=== PATIENT | female | born 1995 | race Caucasian/White ===

== ENCOUNTER → 2020-02-23 15:00 | Outpatient (BNVA) | payer OTHER, SELFPAY | PROVIDERS: PCP Internal Medicine | DX: Z76.89 Persons encountering health services in other specified circumstances (principal) ==

== ENCOUNTER → 2020-02-23 15:08 | Outpatient (BNVA) | payer OTHER, SELFPAY | PROVIDERS: PCP Internal Medicine; Referring Provider Internal Medicine; Visit Provider Advanced Practice Midwife | DX: Z30.42 Encounter for surveillance of injectable contraceptive (principal) | CPT/HCPCS: 99211; J1050 ==

== ENCOUNTER → 2020-05-18 12:54 | Outpatient (BNVA) | payer OTHER, SELFPAY | PROVIDERS: PCP Internal Medicine; Visit Provider Advanced Practice Midwife | DX: Z30.42 Encounter for surveillance of injectable contraceptive (principal) | CPT/HCPCS: 96372; 99211 ==

== ENCOUNTER → 2020-08-10 09:58 | Outpatient (BNVA) | payer OTHER, SELFPAY | PROVIDERS: PCP Internal Medicine; Visit Provider Advanced Practice Midwife | DX: Z30.42 Encounter for surveillance of injectable contraceptive (principal) | CPT/HCPCS: 96372; 99211; J1050 ==

== ENCOUNTER → 2020-11-06 14:51 | Outpatient (BNVA) | payer OTHER, SELFPAY | PROVIDERS: PCP Internal Medicine; Visit Provider Advanced Practice Midwife | DX: Z30.42 Encounter for surveillance of injectable contraceptive (principal) | CPT/HCPCS: 96372; 99211 ==

== ENCOUNTER 2020-12-10 03:17 | Emergency (ER) | payer OTHER, SELFPAY ==
[2020-12-10 03:37] VITALS: BP 131/73; PULSE 95; RESP 18; TEMP 36.8; O2SAT 97; BMI 25.0
[2020-12-10 04:21] VITALS: BP 132/73; PULSE 88; RESP 20; O2SAT 98
[2020-12-10] MEDS: Acetaminophen 325 MG TABLET 650 MG PO (04:23)
[2020-12-10] MEDS: Acetaminophen 325 MG TABLET PO (04:23)
--- NOTE | 2020-12-10 05:43 | ED_ITS ---
HPI - Ear Problem General Chief complaint: Ear Problems Stated complaint: ear pain Time Seen by Provider: 12/10/20 05:43 Source: patient Mode of arrival: ambulatory History of Present Illness HPI Narrative: 25-year-old female presents with acute onset of right ear pain this started less than an hour prior to arrival and she denies any swimming or associated fever, chills or sore throat. Related Data Previous Rx's Medication Instructions Recorded medroxyprogesterone 150 mg/mL 150 mg IM Q12W #1 ml 08/10/20 intramuscular suspension ofloxacin 0.3 % ear drops 5 drp OTIC (EAR) RIGHT BID 7 Days 12/10/20 #5 ml Allergies Allergy/AdvReac Type Severity Reaction Status Date / Time Penicillins [PENICILLINS] Allergy Unknown ITCHINESS Verified 12/10/20 04:22 Penicillin Allergy Unknown rash Uncoded 12/10/20 04:22 Review of Systems Review of Systems: Pertinent positives and negatives as stated in HPI 10 point review of systems is otherwise negative. PMFSH Past Medical History Source: nursing notes reviewed Social History Social History Advance Directives: No Patient : No Physical Exam Vital Signs: Vital Signs: Last Vital Signs Temp 98.3 F 12/10/20 03:37 Pulse 88 12/10/20 04:21 Resp 20 12/10/20 04:21 BP 132/73 12/10/20 04:21 Pulse Ox 98 12/10/20 04:21 Body Mass Index 25.0 VITAL SIGNS: Reviewed. GENERAL: Well developed, well nourished, in no acute distress. HEAD: Normocephalic/atraumatic EYES: PERRLA, EOMI EARS: Right external canal with swelling and redness and unable to visualize TM, left side without acute abnormality NOSE: Nares patent bilateral OROPHARYNX: no oral lesions noted, posterior pharynx clear and non-erythematous without noted tonsillar enlargement/erythema/exudates NECK: Supple, no adenopathy LUNGS: Normal breath sounds. No adventitious sounds or accessory muscle use. SpO2<98> CARDIOVASCULAR: Regular rate and rhythm without noted murmur. ABDOMEN: Soft, non-tender, non-distended with bowel sounds SKIN: Inspection of the skin reveals no rashes NEUROLOGIC: Alert and oriented x 4. Course Course Course Narrative: 25-year-old female with history and clinical presentation consistent with otitis externa. Patient provided with a prescription and discharged home in stable condition. In addition, patient received combination analgesics and on re-evaluation endorses that she feels much better. Discharge Plan Discharge Clinical Impression: Otitis externa Patient Disposition: Home, Self-Care Instructions: Otitis Externa (ED) Additional Instructions: 1. Recommend [id number] Tylenol/ibuprofen as needed for pain control. 2. Complete the entire course of antibiotics as prescribed. 3. Follow-up with your primary care provider in the next 2-3 days for re-evaluat ion. Return to the ER for acute worsening of symptoms. Prescriptions: New ofloxacin 0.3 % drops 5 drp otic (ear) right BID 7 Days Qty: 5 RF: 0 No Action medroxyprogesterone [Depo-Provera] 150 mg/mL syringe 150 mg IM ONCE Qty: 1 RF: 0 medroxyprogesterone 150 mg/mL suspension 150 mg IM Q12W Qty: 1 RF: 1 Referrals: Physician,Unknown [Primary Care Provider] - 2 days
[2020-12-10 05:52] VITALS: BP 113/63; PULSE 77; RESP 16; O2SAT 99
[2020-12-10] MEDS: Ketorolac Tromethamine 15 MG/ML VIAL IM (05:54)
== END 2020-12-10 06:12 | disposition home or self-care (01) ==
PROVIDERS: Emergency Provider Student in an Organized Health Care Education/Training Program
DX: H60.93 Unspecified otitis externa, bilateral (principal); H92.03 Otalgia, bilateral; Z79.899 Other long term (current) drug therapy
CPT/HCPCS: 96372; 99283; 99284; J1885

== ENCOUNTER → 2021-01-31 08:52 | Outpatient (BNVA) | payer OTHER, SELFPAY | PROVIDERS: Visit Provider Advanced Practice Midwife | DX: Z30.42 Encounter for surveillance of injectable contraceptive (principal) | CPT/HCPCS: 96372; 99211 ==

== ENCOUNTER 2021-02-02 13:38 | Outpatient (REF) | payer OTHER, SELFPAY ==
[2021-02-02 16:11] LABS: HCG Quantitative < 2 mIU/mL
[2021-02-03 13:34] LABS: CT PCR NOT DETECTED (Not Detect.); NG PCR NOT DETECTED (Not Detect.)
[2021-02-04 10:51] LABS: BV Int Neg Control Negative (Negative); BV Int Pos Control Positive (Positive)
== END 2021-02-02 13:39 | disposition home or self-care (01) ==
LOC: HO.LAB 13:38
PROVIDERS: Visit Provider Advanced Practice Midwife
DX: R10.2 Pelvic and perineal pain (principal); Z79.3 Long term (current) use of hormonal contraceptives; Z12.4 Encounter for screening for malignant neoplasm of cervix
CPT/HCPCS: 36415; 84702; 87086; 87480; 87491; 87510; 87591; 87660; 88142; 99212

== ENCOUNTER 2021-04-05 11:51 | Outpatient (REF) | payer OTHER, SELFPAY ==
[2021-04-05 16:42] LABS: CT PCR NOT DETECTED (Not Detect.); NG PCR NOT DETECTED (Not Detect.)
[2021-04-06 08:51] LABS: BV Int Neg Control Negative (Negative); BV Int Pos Control Positive (Positive)
== END 2021-04-05 11:52 | disposition home or self-care (01) ==
LOC: HO.LAB 11:51
PROVIDERS: Visit Provider Advanced Practice Midwife
DX: N76.0 Acute vaginitis (principal); Z20.2 Contact with and (suspected) exposure to infections with a predominantly sexual mode of transmission
CPT/HCPCS: 87480; 87491; 87510; 87591; 87660; 99212

== ENCOUNTER → 2021-04-26 12:56 | Outpatient (BNVA) | payer OTHER, SELFPAY | PROVIDERS: Visit Provider Advanced Practice Midwife | DX: Z30.42 Encounter for surveillance of injectable contraceptive (principal) | CPT/HCPCS: 96372; 99211 ==

== ENCOUNTER 2021-05-02 08:21 | Outpatient (REF) | payer OTHER, SELFPAY ==
[2021-05-03 08:47] LABS: BV Int Neg Control Negative (Negative); BV Int Pos Control Positive (Positive)
== END 2021-05-02 08:22 | disposition home or self-care (01) ==
LOC: HO.LAB 08:21
PROVIDERS: Visit Provider Advanced Practice Midwife
DX: Z11.3 Encounter for screening for infections with a predominantly sexual mode of transmission (principal); N76.0 Acute vaginitis; R10.2 Pelvic and perineal pain
CPT/HCPCS: 87480; 87510; 87660; 99212

== ENCOUNTER → 2021-05-03 13:22 | Outpatient (BNVA) | payer OTHER, SELFPAY | PROVIDERS: Visit Provider Psychiatry & Neurology Neurology | DX: G43.109 Migraine with aura, not intractable, without status migrainosus (principal); G47.9 Sleep disorder, unspecified; M54.2 Cervicalgia | CPT/HCPCS: 99202 ==

== ENCOUNTER → 2021-06-01 14:52 | Outpatient (BNVA) | payer OTHER, SELFPAY | PROVIDERS: Visit Provider Psychiatry & Neurology Neurology ==

== ENCOUNTER 2021-06-05 13:27 | Outpatient (REF) | payer OTHER, SELFPAY ==
--- NOTE | ~2021-06-05 | US_ITS ---
EXAMINATION: US PELVIS CLINICAL INFORMATION: This is a 25-year-old female with pelvic pain. The patient has not had a recent menses because she is on medication. COMPARISON: Comparison is made to a previous study dated 08/31/2019. TECHNIQUE: Ultrasound of the pelvis is performed using both transabdominal and transvaginal transducers along with Doppler. Transvaginal imaging is performed due to inadequate visualization transabdominally. FINDINGS: Uterus: The uterus is anteverted and anteflexed and measures 7.4 x 3.5 x 4.5 cm. The double wall endometrial thickness is 0.5 mm. There is also fluid within the endometrial cavity. The uterus is smooth in contour and has normal myometrial echogenicity. No visible fibroid. Adnexa: Both ovaries are visualized. There is normal color flow to the adnexa. There is no ovarian torsion. There is no pelvic ascites or fluid collection. Right ovary measures 2.8 x 1.5 x 1.8 cm. The ovary volume is 4.1 mL. Previously, the right ovary measured 2.5 x 2.3 x 1.5 cm. No masses are seen. Left ovary measures 2.3 x 1.7 x 1.8 cm. The overall volume is 3.7 mL. Previously, the left ovary measured 2.6 x 2.1 x 1.7 cm. Follicular cysts are seen. US/US pelvic and transvaginal IMPRESSION: 1. Although the endometrial complex measures 0.5 cm there is fluid within the cavity. 2. Otherwise, normal study.
== END 2021-06-05 13:28 | disposition home or self-care (01) ==
LOC: HO.US 13:27
PROVIDERS: Visit Provider Advanced Practice Midwife
DX: R10.2 Pelvic and perineal pain (principal); Z79.3 Long term (current) use of hormonal contraceptives
CPT/HCPCS: 76830; 76856

== ENCOUNTER → 2021-06-12 14:41 | Outpatient (BNVA) | payer OTHER, SELFPAY | PROVIDERS: Visit Provider Advanced Practice Midwife | DX: Z13.89 Encounter for screening for other disorder (principal) ==

== ENCOUNTER 2021-06-13 09:00 | Outpatient (REF) | payer OTHER, SELFPAY ==
[2021-06-13 10:14] LABS: HCG Quantitative < 2 mIU/mL
[2021-06-14 05:27] LABS: Prolactin 7.2 ng/mL
== END 2021-06-13 09:01 | disposition home or self-care (01) ==
LOC: HO.LAB 09:00
PROVIDERS: PCP Internal Medicine; Visit Provider Advanced Practice Midwife
DX: N64.52 Nipple discharge (principal)
CPT/HCPCS: 36415; 84146; 84702

== ENCOUNTER → 2021-06-14 10:47 | Outpatient (REF) | payer OTHER, SELFPAY | LOC: HO.SL 10:47 | PROVIDERS: PCP Internal Medicine; Visit Provider Psychiatry & Neurology Neurology | DX: G47.9 Sleep disorder, unspecified (principal); G43.109 Migraine with aura, not intractable, without status migrainosus | CPT/HCPCS: 95806 ==

== ENCOUNTER 2021-07-09 13:08 | Outpatient (REF) | payer OTHER, SELFPAY ==
[2021-07-10 05:55] LABS: CT PCR NOT DETECTED (Not Detect.); NG PCR NOT DETECTED (Not Detect.)
[2021-07-10 15:41] LABS: BV Int Neg Control Negative (Negative); BV Int Pos Control Positive (Positive)
== END 2021-07-09 13:09 | disposition home or self-care (01) ==
LOC: HO.LAB 13:08
PROVIDERS: PCP Internal Medicine; Visit Provider Advanced Practice Midwife
DX: R10.2 Pelvic and perineal pain (principal); N64.52 Nipple discharge; Z30.42 Encounter for surveillance of injectable contraceptive; Z71.2 Person consulting for explanation of examination or test findings; Z20.2 Contact with and (suspected) exposure to infections with a predominantly sexual mode of transmission
CPT/HCPCS: 87480; 87491; 87510; 87591; 87660; 99212

== ENCOUNTER → 2021-07-23 13:06 | Outpatient (BNVA) | payer OTHER, SELFPAY | PROVIDERS: PCP Internal Medicine; Visit Provider Advanced Practice Midwife | DX: Z30.42 Encounter for surveillance of injectable contraceptive (principal) | CPT/HCPCS: 96372; 99211 ==

== ENCOUNTER 2021-09-25 12:12 | Emergency (ER) | payer OTHER, SELFPAY ==
--- NOTE | 2021-09-25 | ECG_ITS ---
Test Reason : cp Blood Pressure : / mmHG Vent. Rate : 092 BPM Atrial Rate : 092 BPM P-R Int : 192 ms QRS Dur : 092 ms QT Int : 350 ms P-R-T Axes : 082 084 032 degrees QTc Int : 432 ms Normal sinus rhythm Nonspecific T wave abnormality Abnormal ECG When compared with ECG of 13-MAY-2016 17:49, Inverted T waves have replaced nonspecific T wave abnormality in Inferior leads Nonspecific T wave abnormality now evident in Lateral leads Referred By: Generic ED Physician Electronically Signed By:ANGELES LOBATO
--- NOTE | ~2021-09-25 | XR_ITS ---
EXAMINATION: XR CHEST CLINICAL INFORMATION: Chest pain COMPARISON: Chest x-ray 11/07/2015 TECHNIQUE: 2 views of the chest were obtained. FINDINGS: No significant abnormality is noted involving the heart, lungs, mediastinum, bony thorax or soft tissues. XR/XR chest 2V IMPRESSION: Unremarkable examination.
[2021-09-25 13:13] VITALS: BP 107/64; PULSE 84; RESP 18; TEMP 36.6; O2SAT 99; BMI 27.4
[2021-09-25 13:35] LABS: UPreg QC Valid YES; Urine Pregnancy NEGATIVE (NEGATIVE)
[2021-09-25 13:46] LABS: Anion Gap 11 (12-20); Blood Urea Nitrogen 12 mg/dL (9-16); Calcium 9.1 mg/dL (8.4-10.2); Carbon Dioxide 26 mmol/L (22-29); Chloride 105 mmol/L (96-108); Creatinine Clr Calc Pharmacy 108.3; Estimated Glomerular Filt Rate > 60; Glucose Random 87 mg/dL (60-115); Potassium 3.8 mmol/L (3.3-5.1); Sodium 138 mmol/L (135-145)
[2021-09-25 13:49] LABS: Basophils Percent Auto 0.4 % (0-2); Eosinophils Absolute Auto 0.1 X10*3/uL (0.0-0.4); Eosinophils Percent Auto 0.7 % (0-4); Hematocrit 43.3 % (37.0-47.0); Hemoglobin 14.7 g/dl (12.0-16.0); Imm Gran Abs Auto 0.06 X10*3/uL (0.00-0.03); Imm Gran Pct Auto 0.7 % (0.0-0.4); Lymphocytes Absolute Auto 2.8 X10*3/uL (1.2-4.9); Lymphocytes Percent Auto 32.3 % (20-40); MANUAL DIFF FLAG SCAN; Mean Corpuscular HGB Conc 33.9 g/dl (31.0-35.0); Mean Corpuscular Hemoglobin 31.4 pg (27.0-33.0); Mean Corpuscular Volume 92.5 fL (80.0-98.0); Monocytes Absolute Auto 0.6 X10*3/uL (0.1-1.2); Neutrophils Percent Auto 58.9 % (45-73); PLT CLUMP 1; Red Blood Count 4.68 X10*6/uL (4.20-5.50); Red Cell Distribution Width 12.3 % (11.0-16.0); SCAN SMEAR FLAG 1
[2021-09-25 13:51] LABS: COVID-19 Test Negative (Negative); IDNOW Serial# 16C4AD1C; Influenza A Negative (Negative); Influenza B2 Positive (Negative)
[2021-09-25 13:53] LABS: Troponin-I High Sensitivity < 3.5 ng/L (<3.5-17.0)
[2021-09-25 14:15] LABS: Mean Platelet Volume 12.3 fL (9.4-12.3); Platelet Count 171 X10*3/uL (160-400); White Blood Count 8.5 X10*3/uL (4.8-10.8)
[2021-09-25 14:16] LABS: SLIDE REVIEW VERIFIED
--- NOTE | 2021-09-25 14:35 | ED.CHESTPAIN ---
HPI - Chest Pain General Chief Complaint: Chest Pain Stated Complaint: Chest pain radiating down L arm/SOB Time Seen by Provider: 09/25/21 14:23 Source: patient Mode of arrival: ambulatory Limitations: no limitations History of Present Illness HPI narrative: Patient comes to emergency room complaining of 3 days of nausea, chest discomfort, not feeling well. Patient recently returned from [place]. Patient denies vomiting diarrhea, no coughing Related Data Home Medications Medication Instructions Recorded Confirmed albuterol sulfate 90 mcg/actuation 2 puff PO Q6H PRN wheezing 05/02/21 06/01/21 aerosol inhaler (ProAir HFA) ibuprofen 800 mg tablet 800 mg PO Q8H PRN pain 05/02/21 06/01/21 Previous Rx's Medication Instructions Recorded magnesium oxide 250 mg PO DAILY #30 tabs 05/10/21 amitriptyline 25 mg tablet 50 mg PO BEDTIME #60 tabs 06/01/21 riboflavin (vitamin B2) 400 mg 400 mg PO DAILY #30 tabs 06/01/21 tablet medroxyprogesterone 150 mg/mL 150 mg IM [id number] 12 weeks #1 mL 07/09/21 intramuscular suspension Allergies Allergy/AdvReac Type Severity Reaction Status Date / Time Penicillins [PENICILLINS] Allergy Unknown ITCHINESS Verified 07/09/21 13:32 Penicillin Allergy Unknown rash Uncoded 06/01/21 14:52 Review of Systems Review of Systems: Constitutional : No Weight loss, No Fever, No Chills, No Night Sweats, complaining of fatigue and generalized malaise ENT/Mouth : No Hearing loss, No Ear Pain, No Nasal Congestion, No Sinus Pain, No Hoarseness, No sore throat, No Rhinorrhea, No Swallowing Difficulty Eyes: No Eye Pain, No Swelling, No Redness, No Foreign Body, No Discharge, No Vision Changes Cardiovascular : No Chest Pain, complaining of chest discomfort with breathing, No SOB, No Dyspnea on Exertion, No Orthopnea, No Edema, No Palpitations Respiratory : No Cough, No Sputum, No Wheezing, No Smoke Exposure, No Dyspnea Gastrointestinal : No Nausea, No Vomiting, No Diarrhea, No Constipation, No abdominal Pain, No Hematochezia, No Melena Genitourinary : no irregular bleeding, No Dysuria, No Urinary Frequency, No Hematuria, No Urinary Incontinence, No Urgency, No Flank Pain, No Urinary Flow Changes, No Hesitancy Musculoskeletal : No joint pain, No Myalgias, No Joint Swelling Skin : No Skin Lesions, No rash Neuro : No Weakness, No Numbness, No Paresthesias, No Loss of Consciousness, No Dizziness, No Headache Psych : No Anxiety/Panic, No Depression, No SI/HI/AH/VH, No Social Issues, Heme/Lymph: No Bruising, No Bleeding,No Lymphadenopathy Endocrine : No Polyuria, No Polydipsia, No Temperature Intolerance [facility] Past Medical History Medical History Heartburn Surgical History [place] teeth extracted Family History Family History Mother HTN (hypertension) Father Testicular cancer Paternal Grandmother Diabetes Maternal Grandmother Thyroid disorder Paternal Grandfather Colon cancer Social History Social History Alcohol intake: current Alcohol intake frequency: holidays/special occasions only Patient Tobacco Use Status: Never used Tobacco Advance Directives: No Advance Directives Information Provided: Yes Gender identity: Female Physical Exam Vital Signs: Vital Signs: Last Vital Signs Temp 98 F 09/25/21 13:13 Pulse 84 09/25/21 13:13 Resp 18 09/25/21 13:13 BP 107/64 09/25/21 13:13 Pulse Ox 99 09/25/21 13:13 O2 Del Method 09/25/21 13:13 BMI result Body Mass Index 27.4 Const: Other: Appearance: Alert. Oriented X3. No acute distress. Well appearing Eyes: Pupils equal, round and reactive to light. ENT: Pharynx normal. Neck: Normal inspection. Neck supple. No lymph nodes noted. No crepitus CVS: Normal heart rate and rhythm. Pulses normal. Normal S1 and S2 Respiratory: No respiratory distress. Breath sounds normal. No Wheezing. No rales Abdomen: Soft and nontender. No rigidity. No distention. Skin: Skin warm and dry. Normal skin color. Normal skin turgor. Extremities: No lower extremity edema. No Lacerations. No Rash Neuro: Oriented X 3. No motor deficit. No sensory deficit. Moving all extremities. No slurred speech. CN 2 through 12 grossly intact Psych: calm, cooperative, normal affect Course Course Course Narrative: I discussed the labs and imaging with the patient, patient tested positive for influenza A. Patient is already 3-4 days since she is symptomatic. Discussed with the patient that Tamiflu may not be effective. Patient decided that she will not take the treatment. Patient states she has enough Tylenol and ibuprofen at home. MDM - Chest Pain Lab Data Result diagrams: 09/25/21 13:23 09/25/21 13:23 Labs: Lab Results 09/25/21 09/25/21 09/25/21 Range/Units 13:23 13:23 13:23 WBC 8.5 (4.8-10.8) X10*3/uL RBC 4.68 (4.20-5.50) X10*6/uL Hgb 14.7 (12.0-16.0) g/dl Hct 43.3 (37.0-47.0) % MCV 92.5 (80.0-98.0) fL MCH 31.4 (27.0-33.0) pg MCHC 33.9 (31.0-35.0) g/dl RDW 12.3 (11.0-16.0) % Plt Count 171 (160-400) X10*3/uL MPV 12.3 (9.4-12.3) fL Immature Gran % (Auto) 0.7 H (0.0-0.4) % Neut % (Auto) 58.9 (45-73) % Lymph % (Auto) 32.3 (20-40) % [place] % (Auto) 7.0 (2-11) % Eos % (Auto) 0.7 (0-4) % Baso % (Auto) 0.4 (0-2) % Lymph # (Auto) 2.8 (1.2-4.9) X10*3/uL [place] # (Auto) 0.6 (0.1-1.2) X10*3/uL Eos # (Auto) 0.1 (0.0-0.4) X10*3/uL Baso # (Auto) 0.0 (0.0-0.2) X10*3/uL Abs Immat Gran (auto) 0.06 H (0.00-0.03) X10*3/uL Absolute Neuts (auto) 5.0 (2.0-8.3) x10*3/uL Absolute Nucleated RBC 0.000 (0.0-0.012) X10*3/uL Nucleated RBC % (auto) 0.0 (0.0-0.2) /100WBC Smear Tech's Comments VERIFIED Sodium 138 (135-145) mmol/L Potassium 3.8 (3.3-5.1) mmol/L Chloride 105 (96-108) mmol/L Carbon Dioxide 26 (22-29) mmol/L Anion Gap 11 L (12-20) BUN 12 (9-16) mg/dL Creatinine 0.79 (0.5-1.4) mg/dL Estim Creat Clear Calc 108.3 Estimated GFR > 60 Random Glucose 87 (60-115) mg/dL Calcium 9.1 (8.4-10.2) mg/dL Troponin I High Sens (<3.5-17.0) ng/L Urine Test (NEGATIVE) COVID-19 (FABIAN) (Negative) COVID-19 Clin Com Influenza Type A (CASSIDY) Negative (Negative) Influenza Type B (CASSIDY) Positive A (Negative) Influenza A & B Note See Note 09/25/21 09/25/21 09/25/21 Range/Units 13:23 13:23 13:23 WBC (4.8-10.8) X10*3/uL RBC (4.20-5.50) X10*6/uL Hgb (12.0-16.0) g/dl Hct (37.0-47.0) % MCV (80.0-98.0) fL MCH (27.0-33.0) pg MCHC (31.0-35.0) g/dl RDW (11.0-16.0) % Plt Count (160-400) X10*3/uL MPV (9.4-12.3) fL Immature Gran % (Auto) (0.0-0.4) % Neut % (Auto) (45-73) % Lymph % (Auto) (20-40) % [place] % (Auto) (2-11) % Eos % (Auto) (0-4) % Baso % (Auto) (0-2) % Lymph # (Auto) (1.2-4.9) X10*3/uL [place] # (Auto) (0.1-1.2) X10*3/uL Eos # (Auto) (0.0-0.4) X10*3/uL Baso # (Auto) (0.0-0.2) X10*3/uL Abs Immat Gran (auto) (0.00-0.03) X10*3/uL Absolute Neuts (auto) (2.0-8.3) x10*3/uL Absolute Nucleated RBC (0.0-0.012) X10*3/uL Nucleated RBC % (auto) (0.0-0.2) /100WBC Smear Tech's Comments Sodium (135-145) mmol/L Potassium (3.3-5.1) mmol/L Chloride (96-108) mmol/L Carbon Dioxide (22-29) mmol/L Anion Gap (12-20) BUN (9-16) mg/dL Creatinine (0.5-1.4) mg/dL Estim Creat Clear Calc Estimated GFR Random Glucose (60-115) mg/dL Calcium (8.4-10.2) mg/dL Troponin I High Sens < 3.5 (<3.5-17.0) ng/L Urine Test NEGATIVE (NEGATIVE) COVID-19 (FABIAN) Negative (Negative) COVID-19 Clin Com See Note Influenza Type A (CASSIDY) (Negative) Influenza Type B (CASSIDY) (Negative) Influenza A & B Note Imaging Data Chest x-ray: My impression: No acute findings, no consolidations Discharge Plan Discharge Clinical Impression: Influenza A Patient Disposition: Home, Self-Care Instructions: Influenza (ED) Additional Instructions: Please follow-up with your primary care physician tomorrow. If you have any worsening or new symptoms, please return to the emergency room or call 911 Prescriptions: No Action magnesium oxide 250 mg magnesium tablet 250 mg PO DAILY Qty: 30 6RF albuterol sulfate [ProAir HFA] 90 mcg/actuation HFA aerosol inhaler 2 puff PO Q6H PRN (Reason: wheezing) ibuprofen 800 mg tablet 800 mg PO Q8H PRN (Reason: pain) amitriptyline 25 mg tablet 50 mg PO BEDTIME Qty: 60 3RF riboflavin (vitamin B2) 400 mg tablet 400 mg PO DAILY Qty: 30 3RF medroxyprogesterone 150 mg/mL suspension 150 mg IM [id number] Days Qty: 1 3RF Stand Alone Forms: Work/School Release
== END 2021-09-25 15:10 | disposition home or self-care (01) ==
PROVIDERS: Emergency Provider Emergency Medicine; PCP Internal Medicine
DX: J10.1 Influenza due to other identified influenza virus with other respiratory manifestations (principal); Z20.822 Contact with and (suspected) exposure to COVID-19
CPT/HCPCS: 71046; 80048; 81025; 84484; 85025; 87502; 87635; 93005; 99283

== ENCOUNTER → 2021-10-22 11:08 | Outpatient (BNVA) | payer OTHER, SELFPAY | PROVIDERS: PCP Internal Medicine; Visit Provider Advanced Practice Midwife | DX: Z30.42 Encounter for surveillance of injectable contraceptive (principal) | CPT/HCPCS: 96372; 99211 ==

== ENCOUNTER → 2022-01-09 15:14 | Outpatient (BNVA) | payer OTHER, SELFPAY | PROVIDERS: PCP Internal Medicine; Visit Provider Advanced Practice Midwife | DX: Z30.42 Encounter for surveillance of injectable contraceptive (principal) | CPT/HCPCS: 96372; 99211 ==

== ENCOUNTER 2022-03-15 13:37 | Outpatient (REF) | payer OTHER, SELFPAY ==
[2022-03-15 18:11] LABS: CT PCR NOT DETECTED (Not Detect.); NG PCR NOT DETECTED (Not Detect.)
[2022-03-17 14:21] LABS: BV Int Neg Control Negative (Negative); BV Int Pos Control Positive (Positive)
== END 2022-03-15 13:38 | disposition home or self-care (01) ==
LOC: HO.LNP 13:37
PROVIDERS: Visit Provider Advanced Practice Midwife
DX: Z11.3 Encounter for screening for infections with a predominantly sexual mode of transmission (principal); R10.2 Pelvic and perineal pain; Z20.2 Contact with and (suspected) exposure to infections with a predominantly sexual mode of transmission
CPT/HCPCS: 81003; 87086; 87088; 87186; 87480; 87491; 87510; 87591; 87660

== ENCOUNTER → 2022-04-04 15:00 | Outpatient (BNVA) | payer OTHER, SELFPAY | PROVIDERS: PCP Internal Medicine; Visit Provider Advanced Practice Midwife | DX: Z30.42 Encounter for surveillance of injectable contraceptive (principal) | CPT/HCPCS: 96372; 99211 ==

== ENCOUNTER 2022-05-22 15:46 | Emergency (ER) | payer OTHER, SELFPAY ==
--- NOTE | ~2022-05-22 | US_ITS ---
EXAMINATION: US PELVIS CLINICAL INFORMATION: Pelvic pain for 5 days COMPARISON: Pelvic ultrasound 06/05/2021 TECHNIQUE: Ultrasound of the pelvis is performed using both transabdominal and transvaginal transducers along with Doppler. Transvaginal imaging is performed due to inadequate visualization transabdominally. FINDINGS: Uterus: The uterus is anteverted and measures 7.7 x 2.6 x 5.4 cm in sagittal, AP, transverse dimensions. The double wall endometrial thickness is 2 mm. Small amount of avascular complex hypoechoic fluid and/or debris in the endometrial cavity. The uterus is smooth in contour and has normal myometrial echogenicity. No visible fibroid. Adnexa: Both ovaries are visualized. There is normal color flow to the adnexa. There is no ovarian torsion. There is no pelvic ascites or fluid collection. Right ovary measures 2.1 x 2.7 x 1.6 cm, volume 14.8 mL, previously 2.8 x 1.5 x 1.8 a.m., line 4.1 mL. Left ovary measures 2.7 x 1.9 x 2 cm, volume 5.4 mL. Previously 2.3 x 1.7 x 1.8 cm, volume 3.7 mL. US/US pelvic ovarian doppler IMPRESSION: 1. No evidence of ovarian torsion. 2. Small amount of avascular complex fluid in the endometrial cavity, nonspecific. 3. Normal uterus and ovaries. No adnexal mass/cyst.
--- NOTE | ~2022-05-22 | US_ITS ---
EXAMINATION: US PELVIS CLINICAL INFORMATION: Pelvic pain for 5 days COMPARISON: Pelvic ultrasound 06/05/2021 TECHNIQUE: Ultrasound of the pelvis is performed using both transabdominal and transvaginal transducers along with Doppler. Transvaginal imaging is performed due to inadequate visualization transabdominally. FINDINGS: Uterus: The uterus is anteverted and measures 7.7 x 2.6 x 5.4 cm in sagittal, AP, transverse dimensions. The double wall endometrial thickness is 2 mm. Small amount of avascular complex hypoechoic fluid and/or debris in the endometrial cavity. The uterus is smooth in contour and has normal myometrial echogenicity. No visible fibroid. Adnexa: Both ovaries are visualized. There is normal color flow to the adnexa. There is no ovarian torsion. There is no pelvic ascites or fluid collection. Right ovary measures 2.1 x 2.7 x 1.6 cm, volume 14.8 mL, previously 2.8 x 1.5 x 1.8 a.m., line 4.1 mL. Left ovary measures 2.7 x 1.9 x 2 cm, volume 5.4 mL. Previously 2.3 x 1.7 x 1.8 cm, volume 3.7 mL. US/US pelvic and transvaginal IMPRESSION: 1. No evidence of ovarian torsion. 2. Small amount of avascular complex fluid in the endometrial cavity, nonspecific. 3. Normal uterus and ovaries. No adnexal mass/cyst.
--- NOTE | 2022-05-22 16:25 | ED.ABDPAIN ---
HPI - Abdominal Pain General Chief Complaint: Abdominal Pain <YOSEF Linda - Last Filed: 05/22/22 16:31> Stated Complaint: abdominal pain <YOSEF Linda - Last Filed: 05/22/22 16:31> Time Seen by Provider: 05/22/22 21:04 <YOSEF Linda - Last Filed: 05/22/22 16:31> Source: patient <Kendra Toth MD - Last Filed: 05/22/22 21:21> Mode of arrival: ambulatory <Kendra Toth MD - Last Filed: 05/22/22 21:21> Limitations: no limitations <Kendra Toth MD - Last Filed: 05/22/22 21:21> History of Present Illness HPI narrative: Patient comes to the emergency room complaining of intermittent bilateral lower quadrant pain/cramping. Patient states that this time it has been present for about 5 days. However, patient has been evaluated multiple times for the same complaint over last year. Patient denies any vaginal discharge, no dysuria or hematuria, no nausea vomiting or diarrhea. <Kendra Toth MD - Last Filed: 05/22/22 21:21> Related Data Home Medications: Home Medications Medication Instructions Recorded Confirmed albuterol sulfate 90 mcg/actuation 2 puff PO Q6H PRN wheezing 05/02/21 03/15/22 aerosol inhaler (ProAir HFA) ibuprofen 800 mg tablet 800 mg PO Q8H PRN pain 05/02/21 03/15/22 fluticasone propionate 50 1 spray intranasal BID 03/15/22 03/15/22 mcg/actuation nasal spray,suspension Previous Rx's Medication Instructions Recorded magnesium oxide 250 mg PO DAILY #30 tabs 05/10/21 amitriptyline 25 mg tablet 50 mg PO BEDTIME #60 tabs 06/01/21 riboflavin (vitamin B2) 400 mg 400 mg PO DAILY #30 tabs 06/01/21 tablet medroxyprogesterone 150 mg/mL 150 mg IM [id number] 12 weeks #1 mL 07/09/21 intramuscular suspension sulfamethoxazole 800 1 tab PO Q12H #6 tabs 03/18/22 mg-trimethoprim 160 mg tablet (Bactrim DS) <YOSEF Linda - Last Filed: 05/22/22 16:31> Allergies/Adverse Reactions: Allergies Allergy/AdvReac Type Severity Reaction Status Date / Time Penicillins [PENICILLINS] Allergy Unknown ITCHINESS Verified 05/22/22 16:29 Penicillin Allergy Unknown rash Uncoded 05/22/22 16:29 <YOSEF Linda - Last Filed: 05/22/22 16:31> Review of Systems Review of Systems Constitutional : No Weight loss, No Fever, No Chills, No Night Sweats, No Fatigue, No Malaise ENT/Mouth : No Hearing loss, No Ear Pain, No Nasal Congestion, No Sinus Pain, No Hoarseness, No sore throat, No Rhinorrhea, No Swallowing Difficulty Eyes: No Eye Pain, No Swelling, No Redness, No Foreign Body, No Discharge, No Vision Changes Cardiovascular : No Chest Pain, No SOB, No Dyspnea on Exertion, No Orthopnea, No Edema, No Palpitations Respiratory : No Cough, No Sputum, No Wheezing, No Smoke Exposure, No Dyspnea Gastrointestinal : No Nausea, No Vomiting, No Diarrhea, No Constipation, complaining of chronic bilateral lower quadrant cramping Genitourinary : no irregular bleeding, No Dysuria, No Urinary Frequency, No Hematuria, No Urinary Incontinence, No Urgency, No Flank Pain, No Urinary Flow Changes, No Hesitancy Musculoskeletal : No joint pain, No Myalgias, No Joint Swelling Skin : No Skin Lesions, No rash Neuro : No Weakness, No Numbness, No Paresthesias, No Loss of Consciousness, No Dizziness, No Headache Psych : No Anxiety/Panic, No Depression, No SI/HI/AH/VH, No Social Issues, Heme/Lymph: No Bruising, No Bleeding,No Lymphadenopathy Endocrine : No Polyuria, No Polydipsia, No Temperature Intolerance <Kendra Toth MD - Last Filed: 05/22/22 21:21> [facility] Past Medical History Medical History: Medical History Heartburn <YOSEF Linda - Last Filed: 05/22/22 16:31> Surgical History: Surgical History [place] teeth extracted <YOSEF Linda - Last Filed: 05/22/22 16:31> Family History Family History: Family History Mother HTN (hypertension) Father Testicular cancer Paternal Grandmother Diabetes Maternal Grandmother Thyroid disorder Paternal Grandfather Colon cancer <YOSEF Linda - Last Filed: 05/22/22 16:31> Social History Social History: Social History Alcohol intake: current Alcohol intake frequency: holidays/special occasions only Patient Tobacco Use Status: Never used Tobacco Advance Directives: No Advance Directives Information Provided: No Gender identity: Female <YOSEF Linda - Last Filed: 05/22/22 16:31> Physical Exam ED Vital Signs: Vital Signs - 24 hr 05/22/22 16:26 Temperature 98.2 F Pulse Rate 78 Respiratory Rate 16 Blood Pressure 122/62 Pulse Oximetry 99 Oxygen Delivery Method Room Air BMI result Body Mass Index 28.3 <YOSEF Linda - Last Filed: 05/22/22 16:31> Vital Signs - 24 hr 05/22/22 16:26 Temperature 98.2 F Pulse Rate 78 Respiratory Rate 16 Blood Pressure 122/62 Pulse Oximetry 99 Oxygen Delivery Method Room Air BMI result Body Mass Index 28.3 <Kendra Toth MD - Last Filed: 05/22/22 21:21> Const Other: Appearance: Alert. Oriented X3. No acute distress. Eyes: Pupils equal, round and reactive to light. ENT: Pharynx normal. Neck: Normal inspection. Neck supple. No lymph nodes noted. No crepitus CVS: Normal heart rate and rhythm. Pulses normal. Normal S1 and S2 Respiratory: No respiratory distress. Breath sounds normal. No Wheezing. No rales Abdomen: Soft , nontender, no rebound, no guarding Skin: Skin warm and dry. Normal skin color. Normal skin turgor. Extremities: No lower extremity edema. No Lacerations. No Rash Neuro: Oriented X 3. No motor deficit. No sensory deficit. Moving all extremities. No slurred speech. CN 2 through 12 grossly intact Psych: calm, cooperative, normal affect <Kendra Toth MD - Last Filed: 05/22/22 21:21> Course Course Course Narrative: RME - 26 year old female presenting today with complaints of pelvic pain x 5 days. Has had ongoing intermittent pelvic pain and was seen by [employer] last month. Hx of ovarian cysts, never had these symptoms in the past. Currently on depo-shot. Took at home hcg test which was negative today. No urinary symptoms. +nausea. Last BM this morning and was normal. No abnormal vaginal discharge or bleeding. Labs, US pelvic and US ovarian doppler ordered. VSS in triage. Patient is stable to return to the waiting room until treatment room becomes available in the main ER. <YOSEF Linda - Last Filed: 05/22/22 16:31> Medical Decision Making Medical Decision Making [facility] Narrative: -patient's physical exam normal, no abdominal pain -white blood cell count within normal limits, chemistry normal -ultrasound shows no acute abnormality. -patient states that this time she feels well and declined any pain medication. <Kendra Toth MD - Last Filed: 05/22/22 21:21> Differential Diagnosis Differential Diagnoses: The differential diagnosis associated with the presentation includes (Ovarian cyst, cyst rupture) <Kendra Toth MD - Last Filed: 05/22/22 21:21> Lab Data [facility] Lab Attestation statement: I reviewed the patient's lab results. <Kendra Toth MD - Last Filed: 05/22/22 21:21> Result Diagrams: 05/22/22 16:41 05/22/22 16:41 <YOSEF Linda - Last Filed: 05/22/22 16:31> Labs: Lab Results 05/22/22 05/22/22 05/22/22 Range/Units 16:41 16:41 20:49 WBC 7.6 (4.8-10.8) X10*3/uL RBC 4.57 (4.20-5.50) X10*6/uL Hgb 14.5 (12.0-16.0) g/dl Hct 42.6 (37.0-47.0) % MCV 93.2 (80.0-98.0) fL MCH 31.7 (27.0-33.0) pg MCHC 34.0 (31.0-35.0) g/dl RDW 12.4 (11.0-16.0) % Plt Count 225 D (160-400) X10*3/uL MPV 11.2 (9.4-12.3) fL Immature Gran % (Auto) 0.1 (0.0-0.4) % Neut % (Auto) 51.2 (45-73) % Lymph % (Auto) 39.1 (20-40) % Tate % (Auto) 8.7 (2-11) % Eos % (Auto) 0.5 (0-4) % Baso % (Auto) 0.4 (0-2) % Lymph # (Auto) 3.0 (1.2-4.9) X10*3/uL Tate # (Auto) 0.7 (0.1-1.2) X10*3/uL Eos # (Auto) 0.0 (0.0-0.4) X10*3/uL Baso # (Auto) 0.0 (0.0-0.2) X10*3/uL Abs Immat Gran (auto) 0.01 (0.00-0.03) X10*3/uL Absolute Neuts (auto) 3.9 (2.0-8.3) x10*3/uL Absolute Nucleated RBC 0.000 (0.0-0.012) X10*3/uL Nucleated RBC % (auto) 0.0 (0.0-0.2) /100WBC Sodium 141 (135-145) mmol/L Potassium 4.3 (3.3-5.1) mmol/L Chloride 106 (96-108) mmol/L Carbon Dioxide 29 (22-29) mmol/L Anion Gap 10 L (12-20) BUN 13 (9-16) mg/dL Creatinine 0.83 (0.5-1.4) mg/dL Estim Creat Clear Calc 104.5 Estimated GFR > 60 Random Glucose 80 (60-115) mg/dL Calcium 9.4 (8.4-10.2) mg/dL Magnesium 2.1 (1.6-2.6) mg/dL Total Bilirubin 0.3 (0.0-1.0) mg/dL Direct Bilirubin < 0.2 (0.0-0.5) mg/dL AST 15 (5-31) U/L ALT 15 (0-31) U/L Alkaline Phosphatase 65 (39-117) U/L Total Protein 7.1 (6.5-8.0) g/dL Albumin 4.2 (3.5-5.0) g/dL Beta HCG, Quant < 2 mIU/mL Urine Color Yellow Urine Appearance Clear Urine pH 7.0 (5.0-9.0) Ur Specific [place] 1.020 (1.005-1.025) Urine Protein Negative (Neg-Trace) mg/dL Urine Glucose (UA) Negative (Negative) mg/dL Urine Ketones Negative (Negative) mg/dL Urine Blood Negative (Negative) Urine Nitrite Negative (Negative) Ur Leukocyte Esterase Negative (Negative) <YOSEF Linda - Last Filed: 05/22/22 16:31> Lab Results 05/22/22 05/22/22 05/22/22 Range/Units 16:41 16:41 20:49 WBC 7.6 (4.8-10.8) X10*3/uL RBC 4.57 (4.20-5.50) X10*6/uL Hgb 14.5 (12.0-16.0) g/dl Hct 42.6 (37.0-47.0) % MCV 93.2 (80.0-98.0) fL MCH 31.7 (27.0-33.0) pg MCHC 34.0 (31.0-35.0) g/dl RDW 12.4 (11.0-16.0) % Plt Count 225 D (160-400) X10*3/uL MPV 11.2 (9.4-12.3) fL Immature Gran % (Auto) 0.1 (0.0-0.4) % Neut % (Auto) 51.2 (45-73) % Lymph % (Auto) 39.1 (20-40) % Tate % (Auto) 8.7 (2-11) % Eos % (Auto) 0.5 (0-4) % Baso % (Auto) 0.4 (0-2) % Lymph # (Auto) 3.0 (1.2-4.9) X10*3/uL Tate # (Auto) 0.7 (0.1-1.2) X10*3/uL Eos # (Auto) 0.0 (0.0-0.4) X10*3/uL Baso # (Auto) 0.0 (0.0-0.2) X10*3/uL Abs Immat Gran (auto) 0.01 (0.00-0.03) X10*3/uL Absolute Neuts (auto) 3.9 (2.0-8.3) x10*3/uL Absolute Nucleated RBC 0.000 (0.0-0.012) X10*3/uL Nucleated RBC % (auto) 0.0 (0.0-0.2) /100WBC Sodium 141 (135-145) mmol/L Potassium 4.3 (3.3-5.1) mmol/L Chloride 106 (96-108) mmol/L Carbon Dioxide 29 (22-29) mmol/L Anion Gap 10 L (12-20) BUN 13 (9-16) mg/dL Creatinine 0.83 (0.5-1.4) mg/dL Estim Creat Clear Calc 104.5 Estimated GFR > 60 Random Glucose 80 (60-115) mg/dL Calcium 9.4 (8.4-10.2) mg/dL Magnesium 2.1 (1.6-2.6) mg/dL Total Bilirubin 0.3 (0.0-1.0) mg/dL Direct Bilirubin < 0.2 (0.0-0.5) mg/dL AST 15 (5-31) U/L ALT 15 (0-31) U/L Alkaline Phosphatase 65 (39-117) U/L Total Protein 7.1 (6.5-8.0) g/dL Albumin 4.2 (3.5-5.0) g/dL Beta HCG, Quant < 2 mIU/mL Urine Color Yellow Urine Appearance Clear Urine pH 7.0 (5.0-9.0) Ur Specific [place] 1.020 (1.005-1.025) Urine Protein Negative (Neg-Trace) mg/dL Urine Glucose (UA) Negative (Negative) mg/dL Urine Ketones Negative (Negative) mg/dL Urine Blood Negative (Negative) Urine Nitrite Negative (Negative) Ur Leukocyte Esterase Negative (Negative) <Kendra Toth MD - Last Filed: 05/22/22 21:21> Radiology Impression Discussion of test interpretation with radiology: I have reviewed the radiologist's reading. <Kendra Toth MD - Last Filed: 05/22/22 21:21> Radiologist Impression: FINDINGS: Uterus: The uterus is anteverted and measures 7.7 x 2.6 x 5.4 cm in sagittal, AP, transverse dimensions. The double wall endometrial thickness is 2 mm. Small amount of avascular complex hypoechoic fluid and/or debris in the endometrial cavity. The uterus is smooth in contour and has normal myometrial echogenicity. ? No visible fibroid. Adnexa: Both ovaries are visualized. There is normal color flow to the adnexa. There is no ovarian torsion.? There is no pelvic ascites or fluid collection. Right ovary measures 2.1 x 2.7 x 1.6 cm, volume 14.8 mL, previously 2.8 x 1.5 x 1.8 a.m., line 4.1 mL. Left ovary measures 2.7 x 1.9 x 2 cm, volume 5.4 mL. Previously 2.3 x 1.7 x 1.8 cm, volume 3.7 mL. US/US pelvic and transvaginal IMPRESSION: 1.? No evidence of ovarian torsion. 2.? Small amount of avascular complex fluid in the endometrial cavity, nonspecific. 3.? Normal uterus and ovaries. No adnexal mass/cyst. ? <Kendra Toth MD - Last Filed: 05/22/22 21:21> Discharge Plan Discharge Clinical Impression: Chronic abdominal pain <YOSEF Linda - Last Filed: 05/22/22 16:31> Patient Disposition: Home, Self-Care <YOSEF Linda - Last Filed: 05/22/22 16:31> Instructions: Chronic Abdominal Pain (ED) <YOSEF Linda - Last Filed: 05/22/22 16:31> Additional Instructions: Please follow-up with your primary care physician tomorrow. If you have any worsening or new symptoms, please return to the emergency room or call 911 <YOSEF Linda - Last Filed: 05/22/22 16:31> Prescriptions: No Action magnesium oxide 250 mg magnesium tablet 250 mg PO DAILY Qty: 30 6RF sulfamethoxazole-trimethoprim [Bactrim DS] 800-160 mg tablet 1 tab PO Q12H Qty: 6 0RF albuterol sulfate [ProAir HFA] 90 mcg/actuation HFA aerosol inhaler 2 puff PO Q6H PRN (Reason: wheezing) ibuprofen 800 mg tablet 800 mg PO Q8H PRN (Reason: pain) amitriptyline 25 mg tablet 50 mg PO BEDTIME Qty: 60 3RF riboflavin (vitamin B2) 400 mg tablet 400 mg PO DAILY Qty: 30 3RF medroxyprogesterone 150 mg/mL suspension 150 mg IM [id number] Days Qty: 1 3RF fluticasone propionate 50 mcg/actuation spray,suspension 1 spray intranasal BID <YOSEF Linda - Last Filed: 05/22/22 16:31>
[2022-05-22 16:26] VITALS: BP 122/62; PULSE 78; RESP 16; TEMP 36.8; O2SAT 99; BMI 28.3
[2022-05-22 16:47] LABS: MANUAL DIFF FLAG NO
[2022-05-22 16:55] LABS: Basophils Percent Auto 0.4 % (0-2); Eosinophils Percent Auto 0.5 % (0-4); Hematocrit 42.6 % (37.0-47.0); Hemoglobin 14.5 g/dl (12.0-16.0); Imm Gran Abs Auto 0.01 X10*3/uL (0.00-0.03); Imm Gran Pct Auto 0.1 % (0.0-0.4); Lymphocytes Percent Auto 39.1 % (20-40); Mean Corpuscular Hemoglobin 31.7 pg (27.0-33.0); Mean Corpuscular Volume 93.2 fL (80.0-98.0); Mean Platelet Volume 11.2 fL (9.4-12.3); Monocytes Absolute Auto 0.7 X10*3/uL (0.1-1.2); Monocytes Percent Auto 8.7 % (2-11); Neutrophils Absolute Auto 3.9 x10*3/uL (2.0-8.3); Neutrophils Percent Auto 51.2 % (45-73); Platelet Count 225 X10*3/uL (160-400); Red Blood Count 4.57 X10*6/uL (4.20-5.50); Red Cell Distribution Width 12.4 % (11.0-16.0); White Blood Count 7.6 X10*3/uL (4.8-10.8)
[2022-05-22 17:19] LABS: Alanine Aminotransferase 15 U/L (0-31); Albumin Level 4.2 g/dL (3.5-5.0); Alkaline Phosphatase 65 U/L (39-117); Anion Gap 10 (12-20); Aspartate Amino Transferase 15 U/L (5-31); Bilirubin Direct < 0.2 mg/dL (0.0-0.5); Bilirubin Total 0.3 mg/dL (0.0-1.0); Blood Urea Nitrogen 13 mg/dL (9-16); Calcium 9.4 mg/dL (8.4-10.2); Carbon Dioxide 29 mmol/L (22-29); Chloride 106 mmol/L (96-108); Creatinine Clr Calc Pharmacy 104.5; Estimated Glomerular Filt Rate > 60; Glucose Random 80 mg/dL (60-115); Magnesium 2.1 mg/dL (1.6-2.6); Potassium 4.3 mmol/L (3.3-5.1); Sodium 141 mmol/L (135-145); Total Protein 7.1 g/dL (6.5-8.0)
[2022-05-22 17:45] LABS: HCG Quantitative < 2 mIU/mL
[2022-05-22 20:59] LABS: Appearance Urine Clear; Color Urine Yellow; Glucose Urine UA Negative (Negative); Leukocyte Esterase Urine Negative (Negative); Nitrite Urine Negative (Negative); Urine Blood Negative (Negative); Urine Ketones Negative (Negative); Urine Protein Negative (Neg-Trace)
== END 2022-05-22 21:27 | disposition home or self-care (01) ==
PROVIDERS: Physician Assistant; Emergency Provider Emergency Medicine; PCP Internal Medicine
DX: R10.2 Pelvic and perineal pain (principal); R10.30 Lower abdominal pain, unspecified; R60.0 Localized edema; Z79.899 Other long term (current) drug therapy
CPT/HCPCS: 36415; 76830; 76856; 80048; 80076; 81003; 83735; 84702; 85025; 93975; 99282; 99284

== ENCOUNTER → 2022-06-24 15:19 | Outpatient (BNVA) | payer OTHER, SELFPAY | PROVIDERS: PCP Internal Medicine; Visit Provider Advanced Practice Midwife | DX: Z30.42 Encounter for surveillance of injectable contraceptive (principal) | CPT/HCPCS: 96372; 99211 ==

== ENCOUNTER → 2022-09-19 10:03 | Outpatient (BNVA) | payer OTHER, SELFPAY | PROVIDERS: PCP Internal Medicine; Visit Provider Advanced Practice Midwife | DX: Z30.42 Encounter for surveillance of injectable contraceptive (principal) | CPT/HCPCS: 96372; 99211 ==

== ENCOUNTER 2022-11-12 08:20 | Outpatient (REF) | payer OTHER, SELFPAY ==
[2022-11-12 11:18] LABS: Thyroid Stimulating Hormone 0.95 uIU/mL (0.32-4.0)
== END 2022-11-12 08:21 | disposition home or self-care (01) ==
LOC: HO.LAB 08:20
PROVIDERS: PCP Internal Medicine; Visit Provider Advanced Practice Midwife
DX: R53.83 Other fatigue (principal); L65.9 Nonscarring hair loss, unspecified; R63.5 Abnormal weight gain; R51.9 Headache, unspecified
CPT/HCPCS: 36415; 84443; 99212

== ENCOUNTER 2022-11-12 08:20 | Outpatient (AMB) | payer OTHER, SELFPAY ==
[2022-11-12 08:38] VITALS: BP 100/60; BMI 28.3
--- NOTE | 2022-11-12 08:38 | MHC.OFFVIS ---
Intake Vital Signs 11/12/22 08:38 Height 5 ft 5 in Weight 170 lb BMI 28.3 BP 100/60 Intake Visit Reasons: Control Changes/form DEPO Intake Note: The patient agreed to use of a medical technologist clinical during this encounter. Scribed for ANUP Hutner by Oma Small medical technologist clinical, on 11/12/2022 at 8:50 am EST. Allergies Penicillins [PENICILLINS] Allergy (Unknown, Verified 11/12/22 08:39) ITCHINESS Penicillin Allergy (Unknown, Uncoded 05/22/22 16:29) rash HPI HPI Comments History of Present Illness Details She is here today with interest in stopping Depo Provera and starting a new form of BC due to headaches, hair loss, weight gain, fatigue and believes her hormones are unstable. Pt. concerned that her PCP did not address her fatigue, she felt dismissed, looking for another provider. She is interested in using the Nexplanon. Reports she has a poor diet and sometimes eat once a day. She denies any stressors. [facility] Medical History Fatigue Hair loss Headache Heartburn Weight gain Surgical History [place] teeth extracted Family History Mother HTN (hypertension) Father Testicular cancer Paternal Grandmother Diabetes Maternal Grandmother Thyroid disorder Paternal Grandfather Colon cancer Social History Alcohol intake: current Alcohol intake frequency: holidays/special occasions only Patient Tobacco Use Status: Never used Tobacco Gender identity: Female Female Reproductive History Menstrual Age of Menarche: 10 Physical Exam Vital Signs: Last Vital Signs BP 100/60 11/12/22 08:38 BMI result Body Mass Index 28.3 Assessment & Plan Assessment & Plan (1) control counseling: Code(s): Z30.09 - Encounter for other general counseling and advice on contraception Plan: Discussed: control options, side effects and benefits of OCP?s, IUD and Nexplanon. She opts for Nexplanon. Sign the appropriated paperwork to authorize. Await approval. Continue Depo Provera for now until Nexplanon insertion. Plan TSH, follow up pending results. Plans on finding a new PCP. Schedule AG. All of her questions and concerns were addressed to the best of my ability and shared decision making. She is agreeable to plan of care. (2) Fatigue: Code(s): R53.83 - Other fatigue Plan: Blood work ordered. (3) Hair loss: Code(s): L65.9 - Nonscarring hair loss, unspecified (4) Weight gain: Code(s): R63.5 - Abnormal weight gain (5) Headache: Code(s): R51.9 - Headache, unspecified Orders: Orders Thyroid Stimulating Hormone Today L65.9 - Nonscarring hair loss, unspecified, R63.5 - Abnormal weight gain Coding Level of Care Code Est Pt Level 3 (47079) Diagnoses control counseling Z30.09 Fatigue R53.83 Hair loss L65.9 Weight gain R63.5 Headache R51.9
== END 2022-11-12 09:19 | disposition home or self-care (01) ==
LOC: HO.HWS 08:20
PROVIDERS: PCP Internal Medicine; Visit Provider Advanced Practice Midwife
DX: Z30.09 Encounter for other general counseling and advice on contraception (principal); R53.83 Other fatigue; L65.9 Nonscarring hair loss, unspecified; R63.5 Abnormal weight gain; R51.9 Headache, unspecified
CPT/HCPCS: 99213

== ENCOUNTER 2022-11-27 12:58 | Emergency (ER) | payer OTHER, SELFPAY ==
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
[2022-11-27 13:03] VITALS: BP 116/63; PULSE 79; RESP 18; TEMP 37.3; O2SAT 96; BMI 27.5
[2022-11-27 13:12] VITALS: BP 120/62; PULSE 96; O2SAT 96
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
[2022-11-27] MEDS: Acetaminophen 325 MG TABLET 975 MG PO (13:40)
[2022-11-27 13:49] LABS: UPreg QC Valid YES
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
[2022-11-27 13:51] LABS: Urine Pregnancy NEGATIVE (NEGATIVE)
== END 2022-11-27 15:04 | disposition home or self-care (01) ==
PROVIDERS: Nurse Practitioner Family; Emergency Provider Student in an Organized Health Care Education/Training Program; PCP Internal Medicine
DX: S06.0X0A Concussion without loss of consciousness, initial encounter (principal); V43.52XA Car driver injured in collision with other type car in traffic accident, initial encounter; Y93.89 Activity, other specified; Y92.414 Local residential or business street as the place of occurrence of the external cause; Y99.9 Unspecified external cause status
CPT/HCPCS: 70450; 81025; 99284

== ENCOUNTER 2022-12-11 11:26 | Outpatient (AMB) | payer OTHER, SELFPAY ==
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
[2022-12-11 11:42] VITALS: BP 112/68; BMI 27.5
== END 2022-12-11 12:25 | disposition home or self-care (01) ==
PROVIDERS: PCP Internal Medicine; Visit Provider Advanced Practice Midwife
DX: Z30.46 Encounter for surveillance of implantable subdermal contraceptive (principal); Z32.02 Encounter for pregnancy test, result negative
CPT/HCPCS: 11981

== ENCOUNTER → 2022-12-11 11:26 | Outpatient (BNVA) | payer OTHER, SELFPAY | PROVIDERS: PCP Internal Medicine; Visit Provider Advanced Practice Midwife | DX: Z32.02 Encounter for pregnancy test, result negative (principal); Z30.09 Encounter for other general counseling and advice on contraception | CPT/HCPCS: 11981; 81025 ==

== ENCOUNTER 2023-02-05 08:26 | Outpatient (REF) | payer OTHER, SELFPAY ==
[2023-02-05 10:04] LABS: HCG Quantitative < 2 mIU/mL
[2023-02-05 14:02] LABS: CT PCR NOT DETECTED (Not Detect.); NG PCR NOT DETECTED (Not Detect.)
[2023-02-06 12:53] LABS: BV Int Neg Control Negative (Negative); BV Int Pos Control Positive (Positive)
== END 2023-02-05 08:27 | disposition home or self-care (01) ==
LOC: HO.LAB 08:26
PROVIDERS: PCP Internal Medicine; Visit Provider Advanced Practice Midwife
DX: N92.6 Irregular menstruation, unspecified (principal); R10.2 Pelvic and perineal pain; R11.0 Nausea; R14.3 Flatulence; Z78.9 Other specified health status
CPT/HCPCS: 0353U; 81003; 81025; 84702; 87480; 87510; 87660; 99212

== ENCOUNTER 2023-02-05 08:26 | Outpatient (AMB) | payer OTHER, SELFPAY ==
[2023-02-05 08:30] VITALS: BP 102/60
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
== END 2023-02-05 08:59 | disposition home or self-care (01) ==
LOC: HO.HWS 08:26
PROVIDERS: PCP Internal Medicine; Visit Provider Advanced Practice Midwife
DX: R10.2 Pelvic and perineal pain (principal); Z78.9 Other specified health status; N92.6 Irregular menstruation, unspecified
CPT/HCPCS: 99214

== ENCOUNTER 2023-02-05 08:53 | Outpatient (REF) | payer OTHER, SELFPAY | END 2023-02-05 08:54 | disposition home or self-care (01) | LOC: HO.LNP 08:53 | PROVIDERS: Visit Provider Advanced Practice Midwife | DX: Z13.89 Encounter for screening for other disorder (principal) ==

== ENCOUNTER 2023-03-05 10:45 | Outpatient (REF) | payer OTHER, SELFPAY ==
--- NOTE | ~2023-03-05 | US_ITS ---
EXAMINATION: US PELVIS COMPLETE CLINICAL INFORMATION: Pelvic pain COMPARISON: Pelvic ultrasound 05/22/2022 TECHNIQUE: Transabdominal and transvaginal imaging was performed. FINDINGS: The uterus is of normal size and echogenicity measuring 8.6 x 3.9 x 5.7 cm. The endometrium measures 2 mm in thickness. There is small volume complex fluid within the endometrial canal. Both ovaries are of normal echogenicity. The right measures 4.1 x 2.1 x 4.2 cm for a volume of 18.9 mL is remarkable for a 3.9 cm unilocular benign functional cyst, no follow-up imaging recommended. The left measures 2.2 x 1.2 x 2.5 cm for a volume of 2.5 mL. There is no pelvic free fluid. US/US pelvic and transvaginal IMPRESSION: 1. There is small volume complex fluid within the endometrial canal, possibly reflecting blood products. 2. A 3.9 cm unilocular benign functional cyst in the right ovary, no follow-up imaging recommended.
== END 2023-03-05 10:46 | disposition home or self-care (01) ==
LOC: HO.US 10:45
PROVIDERS: PCP Internal Medicine; Visit Provider Advanced Practice Midwife
DX: R10.2 Pelvic and perineal pain (principal)
CPT/HCPCS: 76830; 76856

== ENCOUNTER 2023-04-01 09:23 | Outpatient (AMB) | payer OTHER, SELFPAY ==
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
[2023-04-01 09:25] VITALS: BP 98/60
== END 2023-04-01 09:59 | disposition home or self-care (01) ==
LOC: HO.HWS 09:23
PROVIDERS: PCP Internal Medicine; Visit Provider Advanced Practice Midwife
DX: Z71.2 Person consulting for explanation of examination or test findings (principal); R10.2 Pelvic and perineal pain
CPT/HCPCS: 99213

== ENCOUNTER → 2023-04-01 09:23 | Outpatient (BNVA) | payer OTHER, SELFPAY | PROVIDERS: PCP Internal Medicine; Visit Provider Advanced Practice Midwife | DX: Z71.2 Person consulting for explanation of examination or test findings (principal); R10.2 Pelvic and perineal pain; N83.291 Other ovarian cyst, right side | CPT/HCPCS: 81025; 99212 ==

== ENCOUNTER 2023-04-28 11:26 | Outpatient (REF) | payer OTHER, SELFPAY ==
--- NOTE | ~2023-04-28 | US_ITS ---
EXAMINATION: US PELVIS CLINICAL INFORMATION: Irregular menses, last menstrual period April 23, 2023. COMPARISON: 03/06/2023. TECHNIQUE: Transabdominal and transvaginal ultrasound images of the pelvis. FINDINGS: The uterus measures 7.7 x 3.7 x 5.0 cm. Endometrial thickness is 3 mm. Small amount of fluid again demonstrated within the endometrial canal at the level of the lower uterine segment. Left ovary measures 2.3 x 1.7 x 2.0 cm, volume 4.1 mL and is grossly unremarkable, although visualization is limited due to bowel gas. Right ovary measures 2.9 x 2.1 x 3.1 cm, volume 9.9 mL. Right ovarian 2.2 cm cyst. Previous exam demonstrated a 3.9 cm right ovarian cyst. There is no indication for follow-up imaging. No significant free fluid. US/US pelvic and transvaginal IMPRESSION: 1. Small amount of fluid again demonstrated within the endometrial canal at the level of the lower uterine segment. 2. Right ovarian 2.2 cm cyst. Previous exam demonstrated a 3.9 cm right ovarian cyst. There is no indication for follow-up imaging.
== END 2023-04-28 11:27 | disposition home or self-care (01) ==
LOC: HO.US 11:26
PROVIDERS: PCP Internal Medicine; Visit Provider Advanced Practice Midwife
DX: N92.6 Irregular menstruation, unspecified (principal); R10.2 Pelvic and perineal pain
CPT/HCPCS: 76830; 76856

== ENCOUNTER 2023-05-27 14:01 | Outpatient (AMB) | payer OTHER, SELFPAY ==
--- NOTE | 2023-05-27 14:16 | MHC.OFFVIS ---
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 Doing well with no concerns: stopped taking her vitamins with iron because of nausea. She tries to eat healthy and stays active with exercise. Irregular bleeding in May, LMP 04/25/23, then spotted lightly 05/16/23 x 2d. Onset of bleeding today noted with exam. Currently is sexually active. Planning a future . She denies vaginal itching and irritation. STI screening offered; she accepts. She declines bloodwork. Denies family history of breast, ovarian or colon cancer. Last pap smear 2020, negative. PFSH Medical History Headache Weight gain Hair loss Fatigue Heartburn Surgical History [place] teeth extracted Family History Mother HTN (hypertension) Father Testicular cancer Paternal Grandmother Diabetes Maternal Grandmother Thyroid disorder Paternal Grandfather Colon cancer Social History Alcohol intake: current Alcohol intake frequency: holidays/special occasions only Patient Tobacco Use Status: Never used Tobacco Patient : No Gender identity: Female Female Reproductive History Menstrual Age of Menarche: 10 Duration of menses: 3-5 days Date of last menstrual period: 04/25/23 control method: none Total pregnancies: 2 Full term: 2 Number of Living Children: 2 Date of last pap smear: 02/06/21 History of abnormal pap smear: No History of STI: No History of abnormal mammogram: No Review of Systems Const All systems reviewed & are unremarkable except as noted in HPI and below Reports as per HPI Eyes Reports no additional complaints ENT Reports no additional complaints Card Reports no additional complaints Resp Reports no additional complaints GI Reports as per HPI and Reports no additional complaints Reports as per HPI Musc Reports no additional complaints Skin/Breast Reports as per HPI Neuro Reports no additional complaints Psych Reports no additional complaints Endo Reports no additional complaints Fernando/Lymph Reports no additional complaints Aller/Immun Reports no additional complaints Physical Exam Vital Signs: Last Vital Signs BP 116/70 05/27/23 14:19 BMI result Body Mass Index 30.0 Const General: cooperative, healthy appearing, no acute distress, well developed and alert Orientation/consciousness: patient oriented x3 HEENT Head: Yes normal to inspection Eyes General: appearance normal, both eyes and all related structures Neck Neck: Yes normal visual inspection Thyroid: Thyroid normal Chest Chest palpation & inspection: normal inspection of the chest and other (no puckering, dimpling, peau de orange, retraction, discharge, masses) Breast/axilla inspection: normal inspection of the breasts Breast/axilla palpation: normal palpation of the breasts Resp Effort & Inspection: normal respiratory effort GI Inspection: Yes normal to inspection Palpation (GI): Soft to palpation Rectal Exam - Female: deferred General: Yes bladder normal to palpation External Female Exam: normal external appearance and normal appearance of the urethra Speculum Exam - Vagina: normal appearance of the vagina, normal palpation, normal vaginal discharge and vaginal bleeding (Small amount coming from the os) Speculum Exam - Cervix: normal appearance of the cervix and normal palpation Bimanual exam- vagina & uterus: normal bimanual exam, normal palpation, uterine size normal, bladder normal to palpation, normal palpation and non-tender Bimanual Exam- Adnexa, other: no masses OB/external & speculum: vaginal bleeding (Small amount coming from the os) Skin General skin exam: no rashes or lesions noted Rashes: no rashes Neuro General: patient oriented x3 Cognition (Neuro): normal cognition Extrem General: Yes normal to inspection Psych Attitude: cooperative Thought process: Normal thought process present Results AMB Test Urine AMB Test Urine Negative Last Edit by Corine Saldana MA on 05/27/23 14:38 AMB Urinalysis Dipstick UR Leukocytes Negative Last Edit by Corine Saldana MA on 05/27/23 14:39 UR Nitrite Negative Last Edit by Corine Saldana MA on 05/27/23 14:39 UR Urobilinogen 2 Last Edit by Corine Saldana MA on 05/27/23 14:39 UR Protein Negative Last Edit by Corine Saldana MA on 05/27/23 14:39 UR Ph 6.0 Last Edit by Corine Saldana MA on 05/27/23 14:39 UR Blood Negative Last Edit by Corine Saldana MA on 05/27/23 14:39 UR Specific [place] 1.010 Last Edit by Corine Saldana MA on 05/27/23 14:39 UR Ketone Negative Last Edit by Corine Saldana MA on 05/27/23 14:39 UR Bilirubin Negative Last Edit by Corine Saldana MA on 05/27/23 14:39 UR Glucose Negative Last Edit by Corine Saldana MA on 05/27/23 14:39 Results Reviewed Results Reviewed: Laboratory Last Values Urine pH (Clinic) 6.0 05/27/23 14:36 Specific [place] (Clinic) 1.010 05/27/23 14:36 Ur Protein (Clinic) Negative 05/27/23 14:36 Ur Ketones (Clinic) Negative 05/27/23 14:36 Urine Blood (Clinic) Negative 05/27/23 14:36 Urine Nitrite Negative 05/27/23 14:36 Urine Bilirubin (Clinic) Negative 05/27/23 14:36 Urobilinogen (Clinic) 2 05/27/23 14:36 Leukocyte Esterase (Clinic) Negative 05/27/23 14:36 Urine Glucose (Clinic) Negative 05/27/23 14:36 Tst Clinic Negative 05/27/23 14:[address] [address] Ultrasound Report Signed Patient: Patricia Bennett MR#: [id number] : 1995 Acct:[id number] Age/Sex: 27 / F ADM Date: 04/28/23 Loc: HO.US Attending Dr: Lidnsey Ramirez CNM Ordering Physician: Lindsey Ramirez CNM Date of Service: 04/28/23 Procedure(s): US pelvic and transvaginal Accession Number(s): [id number] cc: Lindsey Ramirez CNM; Roxann Louie MD~ EXAMINATION: US PELVIS CLINICAL INFORMATION: Irregular menses, last menstrual period April 23, 2023. COMPARISON: 03/06/2023. TECHNIQUE: Transabdominal and transvaginal ultrasound images of the pelvis. FINDINGS: The uterus measures 7.7 x 3.7 x 5.0 cm. Endometrial thickness is 3 mm. Small amount of fluid again demonstrated within the endometrial canal at the level of the lower uterine segment. Left ovary measures 2.3 x 1.7 x 2.0 cm, volume 4.1 mL and is grossly unremarkable, although visualization is limited due to bowel gas. Right ovary measures 2.9 x 2.1 x 3.1 cm, volume 9.9 mL. Right ovarian 2.2 cm cyst. Previous exam demonstrated a 3.9 cm right ovarian cyst. There is no indication for follow-up imaging. No significant free fluid. US/US pelvic and transvaginal IMPRESSION: 1. Small amount of fluid again demonstrated within the endometrial canal at the level of the lower uterine segment. 2. Right ovarian 2.2 cm cyst. Previous exam demonstrated a 3.9 cm right ovarian cyst. There is no indication for follow-up imaging. 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 Breast awareness and periodic breast exams. Maintain a healthy lifestyle including a well balanced diet and routine exercise. Monitor menses, most likely due for her menses now. Advised to download and kristin for her phone and track her cycles to pinpoint her ovulation timing and also to report back to the office if there is any abnormal uterine bleeding which would require workup. If late for her menses to do a home test if positive to follow up in the office. Continue with vitamins gummy sent to the pharmacy today. Patient verbalizes understanding and agrees to the plan of care. She was given opportunity to ask questions and all questions were answered to the best of my ability. 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 This note is constructed using voice recognition software. While every effort has been made to ensure accuracy, project development coordinator errors may have been included. Orders: Orders AMB HCG Urine Test Today Z32.02 - Encounter for test, result negative AMB HCG Urine Test 02/02/21 Z32.02 - Encounter for test, result negative AMB Urinalysis Dipstick Today R39.9 - Unspecified symptoms and signs involving the genitourinary system Medications: New PNV [id number] 400 mcg-35 mg- 25 mg-5 mg ( Gummies) 1 tab PO DAILY 90 tabs 4RF Coding Level of Care Code Est Pt Prev Care 18-39y(14095) Diagnoses Well woman exam with routine gynecological exam Z01.419
[2023-05-27 14:19] VITALS: BP 116/70
== END 2023-05-27 15:21 | disposition home or self-care (01) ==
LOC: HO.HWS 14:01
PROVIDERS: PCP Internal Medicine; Visit Provider Advanced Practice Midwife
DX: Z01.419 Encounter for gynecological examination (general) (routine) without abnormal findings (principal); Z32.02 Encounter for pregnancy test, result negative; R39.9 Unspecified symptoms and signs involving the genitourinary system
CPT/HCPCS: 99395

== ENCOUNTER 2023-05-27 14:01 | Outpatient (REF) | payer OTHER, SELFPAY ==
[2023-05-27 17:54] LABS: CT PCR NOT DETECTED (Not Detect.); NG PCR NOT DETECTED (Not Detect.)
[2023-06-11 12:49] LABS: HPV mRNA E6/E7 rflx Not Detected (Not Detected)
== END 2023-05-27 14:02 | disposition home or self-care (01) ==
LOC: HO.LNP 14:01
PROVIDERS: PCP Internal Medicine; Visit Provider Advanced Practice Midwife
DX: Z01.419 Encounter for gynecological examination (general) (routine) without abnormal findings (principal); Z11.51 Encounter for screening for human papillomavirus (HPV); Z20.2 Contact with and (suspected) exposure to infections with a predominantly sexual mode of transmission
CPT/HCPCS: 0353U; 81002; 81025; 87624; 88142; 99395